=== PATIENT | male | born 1955 | race Caucasian/White ===

== ENCOUNTER 2017-02-11 15:31 | Emergency (ER) | payer MEDICARE, OTHER ==
[~2017-02-11] VITALS: Ht 172.7 cm; Wt 113.4 kg
[2017-02-11 17:43] LABS: Basophils # (auto) 0.1 uL; Basophils % (auto) 0.6 % (0.0-2.0); Eosinophils # (auto) 0.1 uL; Eosinophils % (auto) 1.3 % (0.0-7.0); Hematocrit 46.1 % (41.0-53.0); Hemoglobin 15.9 g/dL (13.5-17.5); Lymphocytes % (auto) 9.2 % (10.0-50.0); Mean Corpuscular Hemoglobin 30.5 pg (28.0-32.0); Mean Corpuscular Hgb Conc. 34.6 g/dL (32.0-36.0); Mean Corpuscular Volume 88.2 fL (80.0-100.0); Mean Platelet Volume 8.7 fL (6.9-10.8); Monocytes # (auto) 0.8 uL; Monocytes % (auto) 7.2 % (0.0-12.0); Neutrophils # (auto) 8.9 uL; Neutrophils % (auto) 81.7 % (37.0-80.0); Nucleated Red Blood Cells % 0.1 %; Platelet Count (auto) 212 10^3/uL (140-450); White Blood Cell 10.9 10^3/uL (4.4-10.8)
[2017-02-11 17:46] LABS: Albumin 4.1 g/dL (3.4-5.0); Anion Gap 9 (5-15); Aspartate Aminotransferase 34 U/L (15-37); BUN/Creatinine Ratio 31.3; Blood Urea Nitrogen 25 mg/dL (7-18); Calcium 9.1 mg/dL (8.5-10.1); Carbon Dioxide 24 mmol/L (21-32); Chloride 110 mmol/L (98-107); GFR African American 126 mL/min; GFR Non-African American 104 mL/min; Glucose 110 mg/dL (74-106); Potassium 4.1 mmol/L (3.5-5.1); Sodium 143 mmol/L (136-145)
[2017-02-11 17:51] LABS: Alkaline Phosphatase 77 U/L (45-117); Bilirubin, Total 0.5 mg/dL (0.2-1.0); Total Protein 8.1 g/dL (6.4-8.2)
[2017-02-11 20:22] LABS: Urine RBC None Seen /hpf (0 - 3)
[2017-02-11 20:32] VITALS: BP 125/77
[2017-02-11 20:42] LABS: Urine Bilirubin Negative (Negative); Urine Blood Negative /uL (Negative); Urine Color Yellow (Yellow); Urine Glucose Normal (Normal); Urine Ketone Negative (Negative); Urine Mucus FEW (None Seen); Urine Nitrite Negative (Negative); Urine Squamous Epithelial Cell FEW /hpf (<5); Urine Urobilinogen Normal (Negative); Urine pH 5.5 (5.0-8.0)
== END 2017-02-11 21:44 | disposition left against medical advice (07) ==
LOC: ER 15:31
DX: R55 Syncope and collapse (principal); Z53.21 Procedure and treatment not carried out due to patient leaving prior to being seen by health care provider
CPT/HCPCS: 36415; 70450; 80053; 80307; 81001; 84484; 85025; 93005